=== PATIENT | male | born 1945 | race Caucasian/White ===

== ENCOUNTER 2019-09-13 08:21 | Outpatient (CLI) | payer MEDICARE | END 2019-09-13 08:22 | disposition short-term general hospital (02) | LOC: EMS 08:21 | PROVIDERS: ATTEND Surgery | DX: R53.1 Weakness (principal); R47.9 Unspecified speech disturbances | CPT/HCPCS: A0425; A0427 ==

== ENCOUNTER 2023-08-05 18:02 | Outpatient (CLI) | payer MEDICARE | END 2023-08-05 18:03 | disposition left against medical advice (07) | LOC: EMS 18:02 | DX: R55 Syncope and collapse (principal) ==

== ENCOUNTER 2024-06-04 09:35 | Outpatient (CLI) | payer MEDICARE | END 2024-06-04 09:36 | disposition short-term general hospital (02) | LOC: EMS 09:35 | DX: R51.9 Headache, unspecified (principal); R47.81 Slurred speech; R42 Dizziness and giddiness; R11.0 Nausea; I48.91 Unspecified atrial fibrillation | CPT/HCPCS: A0425; A0429 ==